=== PATIENT | male | born 1955 | race Caucasian/White ===

== ENCOUNTER 2018-06-09 15:55 | Inpatient (IN) | payer SELFPAY ==
[~2018-06-09] VITALS: Ht 175.3 cm; Wt 122.0 kg
[2018-06-09 17:00] VITALS: BP 129/77
[2018-06-09] MEDS ORDERED: ENALAPRILAT 1.25 MG/ML, 2ML IVPush PRN (17:00)
[2018-06-09] MEDS ORDERED: POLYETHYLENE GLYCOL 17 GM PACKET PO PRN (17:00)
[2018-06-09] MEDS ORDERED: PLEASE ENTER ALLERGIES MC SCH (17:00)
[2018-06-09] MEDS ORDERED: PLEASE ENTER HEIGHT AND WEIGHT MC SCH (17:00)
[2018-06-09] MEDS ORDERED: BISACODYL 10 MG SUPP PR PRN (17:00)
[2018-06-09] MEDS ORDERED: LABETALOL 5MG/ML, 20ML IVPush PRN (17:00)
[2018-06-09] MEDS ORDERED: ACETAMINOPHEN 325 MG TABLET PO PRN (17:00)
[2018-06-09] MEDS ORDERED: ONDANSETRON 2MG/ML, 2ML IVPush PRN (17:00)
[2018-06-09] MEDS ORDERED: DOCUSATE 100 MG CAPSULE PO PRN (17:00)
[2018-06-09] MEDS ORDERED: HEPARIN 5,000 UNITS/ML, 1ML IV ONE (17:30)
[2018-06-09] MEDS ORDERED: HEPARIN 25,000 UNITS/500ML PMX 500 ML IV PRN (17:30)
[2018-06-09 17:53] LABS: BASOPHILS # (AUTO) 0.06 x10^3/uL (0-0.1); BASOPHILS % (AUTO) 1 % (0-1); EOSINOPHILS # (AUTO) 0.25 x10^3/uL (0-0.4); EOSINOPHILS % (AUTO) 3 % (1-7); LYMPHOCYTES # (AUTO) 1.57 x10^3/uL (1-3.4); LYMPHOCYTES % (AUTO) 16 % (22-44); MD NO; MEAN CORPUSCULAR HEMOGLOBIN 30.9 pg (27.5-34.5); MEAN CORPUSCULAR HGB CONC 33.9 g/dL (33.2-36.2); MEAN CORPUSCULAR VOLUME 91.1 fL (81-97); MEAN PLATELET VOLUME 7.2 fL (7.4-10.4); MONOCYTES # (AUTO) 0.84 x10^3/uL (0.2-0.8); MONOCYTES % (AUTO) 9 % (2-9); NEUTROPHILS # (AUTO) 6.83 x10^3/uL (1.8-6.8); NEUTROPHILS % (AUTO) 72 % (42-75); PLATELET COUNT 150 x10^3/uL (130-400); RED BLOOD COUNT 4.71 x10^6/uL (4.38-5.82); RED CELL DISTRIBUTION WIDTH 12.9 % (9.4-14.8)
[2018-06-09 18:02] LABS: ALANINE AMINOTRANSFERASE 37 U/L (12-78); ALBUMIN 3.3 g/dL (3.4-5.0); ANION GAP 4 mmol/L (5-15); CALCIUM 8.5 mg/dL (8.5-10.1); CHLORIDE 105 mmol/L (98-107); CREATININE 0.96 mg/dL (0.7-1.3)
[2018-06-09 18:04] LABS: ALKALINE PHOSPHATASE 208 U/L (45-117); BILIRUBIN,TOTAL 0.4 mg/dL (0.2-1.0); TOTAL PROTEIN 7.1 g/dL (6.4-8.2)
[2018-06-09] MEDS: morphine SULFATE 10 MG/ML, 1ML IVPush PRN ×2 (18:25→19:34)
[2018-06-09 19:39] VITALS: BP 120/72
[2018-06-10 00:54] VITALS: BP 134/81
[2018-06-10] MEDS: HEPARIN 5,000 UNITS/ML, 1ML IV PRN ×4 (01:56→17:00)
[2018-06-10] MEDS: morphine SULFATE 10 MG/ML, 1ML IVPush PRN ×6 (01:56→20:29)
[2018-06-10 05:55] LABS: BASOPHILS # (AUTO) 0.07 x10^3/uL (0-0.1); BASOPHILS % (AUTO) 1 % (0-1); EOSINOPHILS # (AUTO) 0.27 x10^3/uL (0-0.4); EOSINOPHILS % (AUTO) 3 % (1-7); LYMPHOCYTES # (AUTO) 1.68 x10^3/uL (1-3.4); LYMPHOCYTES % (AUTO) 18 % (22-44); MD NO; MEAN CORPUSCULAR HEMOGLOBIN 30.2 pg (27.5-34.5); MEAN CORPUSCULAR HGB CONC 33.4 g/dL (33.2-36.2); MEAN CORPUSCULAR VOLUME 90.3 fL (81-97); MEAN PLATELET VOLUME 7.2 fL (7.4-10.4); MONOCYTES # (AUTO) 0.82 x10^3/uL (0.2-0.8); MONOCYTES % (AUTO) 9 % (2-9); NEUTROPHILS # (AUTO) 6.31 x10^3/uL (1.8-6.8); NEUTROPHILS % (AUTO) 69 % (42-75); PLATELET COUNT 164 x10^3/uL (130-400); RED CELL DISTRIBUTION WIDTH 13.2 % (9.4-14.8)
[2018-06-10 06:03] LABS: CALCIUM 8.2 mg/dL (8.5-10.1); CHLORIDE 102 mmol/L (98-107)
[2018-06-10 06:11] LABS: ANION GAP 7 mmol/L (5-15); CHOLESTEROL, TOTAL 123 mg/dL (140-239); CREATININE 0.87 mg/dL (0.7-1.3); HDL CHOL % 33 % (26-37); HDL CHOLESTEROL (DIRECT) 41 mg/dL (40-60); LDL CHOLESTEROL,CALCULATED 61 mg/dL (54-169); LDL/HDL RATIO 1.5 (0.5-3.0); TRIGLYCERIDES 105 mg/dL (50-200); TROPONIN I 0.626 ng/mL (0.000-0.045); VLDL CHOLESTEROL 21 mg/dL (0-25)
[2018-06-10 06:39] LABS: HEMOGLOBIN A1C 6.2 % (4.2-6.3)
[2018-06-10 07:16] VITALS: BP 119/77
[2018-06-10] MEDS: ONDANSETRON ODT 4 MG PO PRN ×3 (08:46→20:32)
[2018-06-10 13:36] VITALS: BP 108/72
[2018-06-10] MEDS ORDERED: HEPARIN 25,000 UNITS/500ML PMX 500 ML IV PRN (17:30)
[2018-06-10 20:01] VITALS: BP 110/73
[2018-06-11] MEDS: HEPARIN 5,000 UNITS/ML, 1ML IV PRN (01:00)
[2018-06-11 01:23] VITALS: BP 114/71
[2018-06-11] MEDS: morphine SULFATE 10 MG/ML, 1ML IVPush PRN (05:32)
[2018-06-11 06:30] VITALS: BP 110/65
[2018-06-11 08:03] LABS: BASOPHILS # (AUTO) 0.04 x10^3/uL (0-0.1); BASOPHILS % (AUTO) 0 % (0-1); EOSINOPHILS # (AUTO) 0.14 x10^3/uL (0-0.4); EOSINOPHILS % (AUTO) 1 % (1-7); LYMPHOCYTES # (AUTO) 1.13 x10^3/uL (1-3.4); LYMPHOCYTES % (AUTO) 11 % (22-44); MD NO; MEAN CORPUSCULAR HEMOGLOBIN 30.3 pg (27.5-34.5); MEAN CORPUSCULAR HGB CONC 34.1 g/dL (33.2-36.2); MEAN CORPUSCULAR VOLUME 88.8 fL (81-97); MEAN PLATELET VOLUME 7.3 fL (7.4-10.4); MONOCYTES # (AUTO) 0.82 x10^3/uL (0.2-0.8); MONOCYTES % (AUTO) 8 % (2-9); NEUTROPHILS % (AUTO) 79 % (42-75); PLATELET COUNT 194 x10^3/uL (130-400); RED BLOOD COUNT 4.55 x10^6/uL (4.38-5.82)
[2018-06-11 08:15] LABS: ALANINE AMINOTRANSFERASE 32 U/L (12-78); ALBUMIN 3.1 g/dL (3.4-5.0); ANION GAP 6 mmol/L (5-15); CALCIUM 8.4 mg/dL (8.5-10.1); CHLORIDE 98 mmol/L (98-107); CREATININE 0.89 mg/dL (0.7-1.3)
[2018-06-11 08:17] LABS: ALKALINE PHOSPHATASE 189 U/L (45-117); BILIRUBIN,TOTAL 0.6 mg/dL (0.2-1.0); TOTAL PROTEIN 6.9 g/dL (6.4-8.2)
[2018-06-11] MEDS ORDERED: GLYCERIN ADULT SUPP PR PRN (08:30)
[2018-06-11] MEDS ORDERED: SENNA/DOCUSATE TABLET PO PRN (08:30)
[2018-06-11] MEDS ORDERED: MAGNESIUM HYDROXIDE 8%, 30ML UDC PO PRN (08:30)
[2018-06-11] MEDS ORDERED: MAGNESIUM CITRATE 300ML ORAL SOL PO PRN (08:30)
[2018-06-11] MEDS: GUAIFENESIN ER 600 MG TABLET PO SCH ×2 (09:00→21:00)
[2018-06-11] MEDS ORDERED: LIDOCAINE-MPF 2%, 2ML ONE (09:16)
[2018-06-11] MEDS ORDERED: FLUMAZENIL 0.1 MG/1 ML, 5ML ONE ×2 (09:36→11:47)
[2018-06-11] MEDS ORDERED: FENTANYL PF 100 MCG/2ML ONE ×2 (09:36→11:47)
[2018-06-11] MEDS ORDERED: NALOXONE 1 MG/ML, 2ML ONE ×2 (09:36→11:47)
[2018-06-11] MEDS ORDERED: MIDAZOLAM 1 MG/ML, 5ML ONE ×2 (09:36→11:47)
[2018-06-11 11:19] LABS: INTERNATIONAL NORMALIZED RATIO 1.17 (0.93-1.1); PROTHROMBIN TIME 12.1 Seconds (9.6-11.5)
[2018-06-11] MEDS ORDERED: ALTEPLASE 1 MG/ML ONE (11:59)
[2018-06-11] MEDS ORDERED: ALTEPLASE IV ONE ×2 (12:00)
[2018-06-11] MEDS: SODIUM CHLORIDE 0.9% 1,000 ML IV SCH (15:07)
[2018-06-11] MEDS ORDERED: OMNIPAQUE 350 MG/ML, 100ML BOTTLE ONE (15:10)
[2018-06-12] MEDS: SODIUM CHLORIDE 0.9% 1,000 ML IV SCH ×2 (03:34→17:17)
[2018-06-12 04:35] LABS: BASOPHILS # (AUTO) 0.11 x10^3/uL (0-0.1); BASOPHILS % (AUTO) 1 % (0-1); EOSINOPHILS # (AUTO) 0.13 x10^3/uL (0-0.4); EOSINOPHILS % (AUTO) 1 % (1-7); LYMPHOCYTES # (AUTO) 0.86 x10^3/uL (1-3.4); LYMPHOCYTES % (AUTO) 8 % (22-44); MD NO; MEAN CORPUSCULAR HEMOGLOBIN 30.5 pg (27.5-34.5); MEAN CORPUSCULAR HGB CONC 33.8 g/dL (33.2-36.2); MEAN CORPUSCULAR VOLUME 90.1 fL (81-97); MEAN PLATELET VOLUME 6.9 fL (7.4-10.4); MONOCYTES # (AUTO) 0.75 x10^3/uL (0.2-0.8); MONOCYTES % (AUTO) 7 % (2-9); NEUTROPHILS # (AUTO) 8.54 x10^3/uL (1.8-6.8); NEUTROPHILS % (AUTO) 82 % (42-75); PLATELET COUNT 164 x10^3/uL (130-400); RED BLOOD COUNT 4.62 x10^6/uL (4.38-5.82); RED CELL DISTRIBUTION WIDTH 12.9 % (9.4-14.8)
[2018-06-12 04:55] LABS: ANION GAP 7 mmol/L (5-15); CALCIUM 8.6 mg/dL (8.5-10.1); CHLORIDE 102 mmol/L (98-107); CREATININE 0.81 mg/dL (0.7-1.3)
[2018-06-12] MEDS: GUAIFENESIN ER 600 MG TABLET PO SCH ×2 (08:14→20:16)
[2018-06-12] MEDS ORDERED: LIDOCAINE-MPF 2%, 2ML ONE (12:37)
[2018-06-12] MEDS ORDERED: GADOBUTROL 7.5 MMOL/7.5 ML PFS ONE (15:19)
[2018-06-12] MEDS ORDERED: FENTANYL PF 100 MCG/2ML ONE (16:10)
[2018-06-12] MEDS ORDERED: MIDAZOLAM 1 MG/ML, 5ML ONE (16:10)
[2018-06-12] MEDS ORDERED: FLUMAZENIL 0.1 MG/1 ML, 5ML ONE (16:10)
[2018-06-12] MEDS ORDERED: NALOXONE 1 MG/ML, 2ML ONE (16:10)
[2018-06-12 17:09] VITALS: BP 128/88
[2018-06-12 19:29] VITALS: BP 120/72
[2018-06-12] MEDS: morphine SULFATE 10 MG/ML, 1ML IVPush PRN (20:53)
[2018-06-13 02:37] VITALS: BP 123/77
[2018-06-13] MEDS: SODIUM CHLORIDE 0.9% 1,000 ML IV SCH ×2 (05:04→17:25)
[2018-06-13] MEDS: morphine SULFATE 10 MG/ML, 1ML IVPush PRN ×4 (05:04→19:09)
[2018-06-13 05:16] LABS: CALCIUM 8.5 mg/dL (8.5-10.1); CHLORIDE 103 mmol/L (98-107)
[2018-06-13 05:18] LABS: BASOPHILS # (AUTO) 0.02 x10^3/uL (0-0.1); BASOPHILS % (AUTO) 0 % (0-1); EOSINOPHILS # (AUTO) 0.15 x10^3/uL (0-0.4); EOSINOPHILS % (AUTO) 1 % (1-7); LYMPHOCYTES # (AUTO) 0.83 x10^3/uL (1-3.4); LYMPHOCYTES % (AUTO) 7 % (22-44); MD NO; MEAN CORPUSCULAR HEMOGLOBIN 30.7 pg (27.5-34.5); MEAN CORPUSCULAR HGB CONC 34.3 g/dL (33.2-36.2); MEAN CORPUSCULAR VOLUME 89.5 fL (81-97); MEAN PLATELET VOLUME 7.2 fL (7.4-10.4); MONOCYTES # (AUTO) 0.87 x10^3/uL (0.2-0.8); MONOCYTES % (AUTO) 8 % (2-9); NEUTROPHILS # (AUTO) 9.65 x10^3/uL (1.8-6.8); NEUTROPHILS % (AUTO) 84 % (42-75); PLATELET COUNT 141 x10^3/uL (130-400); RED BLOOD COUNT 4.59 x10^6/uL (4.38-5.82); RED CELL DISTRIBUTION WIDTH 12.7 % (9.4-14.8)
[2018-06-13 05:20] LABS: ALANINE AMINOTRANSFERASE 42 U/L (12-78); ALKALINE PHOSPHATASE 195 U/L (45-117); ANION GAP 11 mmol/L (5-15); BILIRUBIN,TOTAL 0.8 mg/dL (0.2-1.0); CREATININE 0.78 mg/dL (0.7-1.3); TOTAL PROTEIN 6.5 g/dL (6.4-8.2)
[2018-06-13 06:49] VITALS: BP 137/89
[2018-06-13] MEDS ORDERED: HEPARIN 25,000 UNITS/500ML PMX 500 ML IV PRN (07:30)
[2018-06-13] MEDS: HEPARIN 25,000 UNITS/500ML PMX 500 ML IV PRN (07:55)
[2018-06-13] MEDS ORDERED: HEPARIN 5,000 UNITS/ML, 1ML IV ONE (08:00)
[2018-06-13] MEDS: GUAIFENESIN ER 600 MG TABLET PO SCH (08:55)
[2018-06-13] MEDS: HEPARIN 5,000 UNITS/ML, 1ML IV PRN ×2 (15:05→23:28)
[2018-06-13 15:55] VITALS: BP 121/77
[2018-06-13 20:26] VITALS: BP 124/76
[2018-06-13] MEDS ORDERED: GUAIFENESIN 100 MG/5 ML, 5ML UDC PO SCH (21:00)
[2018-06-14] MEDS: morphine SULFATE 10 MG/ML, 1ML IVPush PRN ×6 (01:56→21:28)
[2018-06-14 02:01] VITALS: BP 128/76
[2018-06-14] MEDS: SODIUM CHLORIDE 0.9% 1,000 ML IV SCH ×2 (05:56→18:40)
[2018-06-14] MEDS: HEPARIN 5,000 UNITS/ML, 1ML IV PRN (06:37)
[2018-06-14 07:26] VITALS: BP 119/79
[2018-06-14] MEDS: HEPARIN 25,000 UNITS/500ML PMX 500 ML IV PRN (08:05)
[2018-06-14] MEDS: GUAIFENESIN ER 600 MG TABLET PO SCH ×2 (08:06→21:14)
[2018-06-14 08:28] LABS: ALANINE AMINOTRANSFERASE 37 U/L (12-78); ALBUMIN 2.6 g/dL (3.4-5.0); ANION GAP 7 mmol/L (5-15); CALCIUM 7.8 mg/dL (8.5-10.1); CHLORIDE 102 mmol/L (98-107); CREATININE 0.67 mg/dL (0.7-1.3)
[2018-06-14 08:30] LABS: ALKALINE PHOSPHATASE 180 U/L (45-117); BILIRUBIN,TOTAL 0.5 mg/dL (0.2-1.0)
[2018-06-14 08:37] LABS: BASOPHILS # (AUTO) 0.07 x10^3/uL (0-0.1); BASOPHILS % (AUTO) 1 % (0-1); EOSINOPHILS # (AUTO) 0.21 x10^3/uL (0-0.4); EOSINOPHILS % (AUTO) 2 % (1-7); LYMPHOCYTES # (AUTO) 1.19 x10^3/uL (1-3.4); LYMPHOCYTES % (AUTO) 13 % (22-44); MD NO; MEAN CORPUSCULAR HEMOGLOBIN 30.2 pg (27.5-34.5); MEAN CORPUSCULAR HGB CONC 33.5 g/dL (33.2-36.2); MEAN CORPUSCULAR VOLUME 90.2 fL (81-97); MEAN PLATELET VOLUME 7.7 fL (7.4-10.4); MONOCYTES # (AUTO) 0.63 x10^3/uL (0.2-0.8); MONOCYTES % (AUTO) 7 % (2-9); NEUTROPHILS # (AUTO) 7.06 x10^3/uL (1.8-6.8); NEUTROPHILS % (AUTO) 77 % (42-75); PLATELET COUNT 169 x10^3/uL (130-400); RED BLOOD COUNT 4.22 x10^6/uL (4.38-5.82); RED CELL DISTRIBUTION WIDTH 13.4 % (9.4-14.8)
[2018-06-14] MEDS: RIVAROXABAN 15 MG TABLET PO SCH ×2 (10:42→21:14)
[2018-06-14 12:19] VITALS: BP 120/76
[2018-06-14 13:10] VITALS: BP 127/80
[2018-06-14] MEDS ORDERED: RIVAROXABAN 15 MG TABLET PO SCH (17:00)
[2018-06-14 20:39] VITALS: BP 129/78
[2018-06-15 02:07] VITALS: BP 122/76
[2018-06-15 03:56] VITALS: BP 142/83
[2018-06-15] MEDS: morphine SULFATE 10 MG/ML, 1ML IVPush PRN ×5 (03:56→23:09)
[2018-06-15] MEDS: SODIUM CHLORIDE 0.9% 1,000 ML IV SCH (05:34)
[2018-06-15 06:53] VITALS: BP 143/88
[2018-06-15] MEDS: GUAIFENESIN ER 600 MG TABLET PO SCH ×2 (08:08→20:03)
[2018-06-15] MEDS: RIVAROXABAN 15 MG TABLET PO SCH ×2 (08:09→17:48)
[2018-06-15 12:06] VITALS: BP 131/84
[2018-06-15] MEDS: ONDANSETRON ODT 4 MG PO PRN (12:14)
[2018-06-15 20:12] VITALS: BP 130/80
[2018-06-16 02:27] VITALS: BP 131/75
[2018-06-16] MEDS: morphine SULFATE 10 MG/ML, 1ML IVPush PRN ×2 (02:55→13:29)
[2018-06-16 08:01] VITALS: BP 131/66
[2018-06-16] MEDS: RIVAROXABAN 15 MG TABLET PO SCH ×2 (08:56→17:53)
[2018-06-16] MEDS: GUAIFENESIN ER 600 MG TABLET PO SCH (08:56)
[2018-06-16 12:50] VITALS: BP 117/73
[2018-06-16] MEDS: OXYcodone 5 MG/5 ML ORAL.SOL UDC PO SCH ×2 (14:30→17:53)
[2018-06-16 16:53] LABS: BASOPHILS # (AUTO) 0.05 x10^3/uL (0-0.1); BASOPHILS % (AUTO) 0 % (0-1); EOSINOPHILS # (AUTO) 0.07 x10^3/uL (0-0.4); EOSINOPHILS % (AUTO) 1 % (1-7); LYMPHOCYTES # (AUTO) 0.72 x10^3/uL (1-3.4); LYMPHOCYTES % (AUTO) 6 % (22-44); MEAN CORPUSCULAR HGB CONC 33.6 g/dL (33.2-36.2); MEAN CORPUSCULAR VOLUME 89.3 fL (81-97); MEAN PLATELET VOLUME 6.7 fL (7.4-10.4); MONOCYTES # (AUTO) 0.97 x10^3/uL (0.2-0.8); MONOCYTES % (AUTO) 8 % (2-9); NEUTROPHILS # (AUTO) 11.12 x10^3/uL (1.8-6.8); NEUTROPHILS % (AUTO) 86 % (42-75); PLATELET COUNT 139 x10^3/uL (130-400); RED BLOOD COUNT 4.39 x10^6/uL (4.38-5.82); RED CELL DISTRIBUTION WIDTH 12.7 % (9.4-14.8)
[2018-06-16 16:54] LABS: ALANINE AMINOTRANSFERASE 42 U/L (12-78); ALBUMIN 2.8 g/dL (3.4-5.0); ANION GAP 9 mmol/L (5-15); CALCIUM 8.4 mg/dL (8.5-10.1); CHLORIDE 98 mmol/L (98-107); CREATININE 0.81 mg/dL (0.7-1.3); MD NO
[2018-06-16 16:56] LABS: ALKALINE PHOSPHATASE 192 U/L (45-117); BILIRUBIN,TOTAL 0.9 mg/dL (0.2-1.0); TOTAL PROTEIN 6.6 g/dL (6.4-8.2)
[2018-06-16] MEDS: SODIUM CHLORIDE 0.9% 1,000 ML IV SCH (17:54)
[2018-06-16 19:23] VITALS: BP 137/81
[2018-06-16 23:31] VITALS: BP 133/81
[2018-06-17] MEDS: OXYcodone 5 MG/5 ML ORAL.SOL UDC PO SCH ×5 (00:39→21:47)
[2018-06-17] MEDS: GUAIFENESIN ER 600 MG TABLET PO SCH ×3 (00:39→07:41)
[2018-06-17 00:46] LABS: MICROSCOPIC INDICATED
[2018-06-17 01:39] LABS: CULTURE INDICATED? NO
[2018-06-17 02:50] VITALS: BP 136/82
[2018-06-17] MEDS: RIVAROXABAN 15 MG TABLET PO SCH ×2 (07:41→15:42)
[2018-06-17 08:10] VITALS: BP 121/76
[2018-06-17 13:19] VITALS: BP 132/78
[2018-06-17 13:54] LABS: BASOPHILS # (AUTO) 0.01 x10^3/uL (0-0.1); BASOPHILS % (AUTO) 0 % (0-1); EOSINOPHILS # (AUTO) 0.08 x10^3/uL (0-0.4); EOSINOPHILS % (AUTO) 1 % (1-7); LYMPHOCYTES % (AUTO) 6 % (22-44); MD NO; MEAN CORPUSCULAR HEMOGLOBIN 29.8 pg (27.5-34.5); MEAN CORPUSCULAR HGB CONC 33.3 g/dL (33.2-36.2); MEAN CORPUSCULAR VOLUME 89.5 fL (81-97); MEAN PLATELET VOLUME 7.1 fL (7.4-10.4); MONOCYTES # (AUTO) 0.75 x10^3/uL (0.2-0.8); MONOCYTES % (AUTO) 6 % (2-9); NEUTROPHILS # (AUTO) 11.21 x10^3/uL (1.8-6.8); NEUTROPHILS % (AUTO) 88 % (42-75); PLATELET COUNT 130 x10^3/uL (130-400); RED BLOOD COUNT 4.54 x10^6/uL (4.38-5.82); RED CELL DISTRIBUTION WIDTH 13.1 % (9.4-14.8)
[2018-06-17 14:01] LABS: ALBUMIN 2.7 g/dL (3.4-5.0); ANION GAP 8 mmol/L (5-15); CALCIUM 8.3 mg/dL (8.5-10.1); CHLORIDE 100 mmol/L (98-107)
[2018-06-17 14:05] LABS: ALANINE AMINOTRANSFERASE 40 U/L (12-78); ALKALINE PHOSPHATASE 199 U/L (45-117); BILIRUBIN,TOTAL 1.2 mg/dL (0.2-1.0); CREATININE 0.91 mg/dL (0.7-1.3); TOTAL PROTEIN 6.5 g/dL (6.4-8.2)
[2018-06-17] MEDS: SODIUM CHLORIDE 0.9% 1,000 ML IV SCH (15:34)
[2018-06-17] MEDS: PIPERACILLIN/TAZO 3.375 GM in SODIUM CHLORIDE 0.9% 50 ML IVPB SCH ×2 (15:34→19:51)
[2018-06-17 19:25] VITALS: BP 131/83
[2018-06-17] MEDS: GUAIFENESIN 100 MG/5 ML, 10ML UDC PO SCH (21:47)
[2018-06-18 01:30] VITALS: BP 124/72
[2018-06-18] MEDS: PIPERACILLIN/TAZO/PMX 3.375GM 50 ML IV SCH ×2 (01:41→08:15)
[2018-06-18] MEDS: GUAIFENESIN 100 MG/5 ML, 10ML UDC PO SCH ×2 (01:41→08:15)
[2018-06-18] MEDS: OXYcodone 5 MG/5 ML ORAL.SOL UDC PO SCH (08:30)
[2018-06-18] MEDS: RIVAROXABAN 15 MG TABLET PO SCH (08:31)
[2018-06-18 08:33] VITALS: BP 135/74
[2018-06-18] MEDS: morphine SULFATE 10 MG/ML, 1ML IVPush PRN (08:42)
[2018-06-18] MEDS ORDERED: ATROPINE OPHTH SOLN 1%, 2ML BC PRN (12:00)
[2018-06-18] MEDS ORDERED: SCOPOLAMINE PATCH, 1.5MG PATCH.TD72 TD SCH (12:00)
[2018-06-18] MEDS ORDERED: MORPHINE SULFATE 4 MG/ML, 1ML IVPush PRN ×2 (12:00)
[2018-06-18] MEDS: LORazepam 2 MG/ML, 1ML IVPush PRN ×3 (12:01→19:25)
== END 2018-06-19 00:20 | disposition expired | DRG 180 ==
LOC: 5SO 16:28 → CCU 06-11 11:57 → 5SO 06-12 15:27 → 3NW 06-15 12:47
PROVIDERS: ADMIT Family Medicine; ATTEND Family Medicine
PROC: 3E03317 Introduction of Other Thrombolytic into Peripheral Vein, Percutaneous Approach (ICD-10-PCS; principal; 2018-06-11)
PROC: 0JBC3ZX Excision of Pelvic Region Subcutaneous Tissue and Fascia, Percutaneous Approach, Diagnostic (ICD-10-PCS; 2018-06-12)
DX: C34.90 Malignant neoplasm of unspecified part of unspecified bronchus or lung (principal); G93.41 Metabolic encephalopathy; I26.99 Other pulmonary embolism without acute cor pulmonale; I63.412 Cerebral infarction due to embolism of left middle cerebral artery; C79.51 Secondary malignant neoplasm of bone; C79.70 Secondary malignant neoplasm of unspecified adrenal gland; D68.59 Other primary thrombophilia; E87.1 Hypo-osmolality and hyponatremia; I82.442 Acute embolism and thrombosis of left tibial vein; N28.0 Ischemia and infarction of kidney; R47.01 Aphasia; D63.8 Anemia in other chronic diseases classified elsewhere; D73.5 Infarction of spleen; F17.200 Nicotine dependence, unspecified, uncomplicated; R13.10 Dysphagia, unspecified; R29.708 NIHSS score 8; Z51.5 Encounter for palliative care; Z79.01 Long term (current) use of anticoagulants; F12.20 Cannabis dependence, uncomplicated; Z90.49 Acquired absence of other specified parts of digestive tract; R73.9 Hyperglycemia, unspecified
CPT/HCPCS: 36415; 49180; 70450; 70496; 70498; 70551; 70553; 71045; 72157; 72158; 74018; 74230; 77012; 80048; 80053; 80061; 81001; 82962; 83036; 83735; 84100; 84484; 85025; 85520; 85610; 85730; 87081; 88305; 88341; 88342; 93306; 93970; 99156; 99157; A9585; G0378; J1644; J2250; J2270; J2405; J2543; J2997; J3010; J3490; Q0162; Q9967; 92522-GN; G0461; J2060; J2310; J7030